=== PATIENT | female | born 1980 | race American Indian/Alaskan Native ===

== ENCOUNTER 2016-09-03 08:18 | Emergency (ER) | payer SELFPAY ==
[2016-09-03 08:28] VITALS: BP 131/83
[2016-09-03] MEDS ORDERED: MOTRIN PO ONE (08:33)
--- NOTE | 2016-09-03 08:37 | Emergency Department Report ---
HPI - General Chief Complaint: Sore Throat Time Seen by Provider: 09/03/16 08:36 ED Past Medical Hx - Past Medical History Previous Medical History?: Yes Hx Arthritis: Yes Hx Psychiatric Treatment: Yes (BIPOLAR) - Surgical History Past Surgical History?: Yes Hx Cholecystectomy: Yes Additional Surgical History: acl repair - Social History Smoking Status: Never Smoker Substance Use Type: Alcohol - Medications Home Medications: Home Medications Medication Instructions Recorded Confirmed Last Taken Type Fluconazole [Diflucan TAB] 150 mg PO ONCE #1 tablet 04/09/16 Unknown Rx Nitrofurantoin [place]/M-Cryst 100 mg PO Q12HR #6 capsule 04/09/16 Unknown Rx [Macrobid CAP] ED Review of Systems ROS: Stated complaint: SORE THROAT Other details as noted in HPI Physical Exam - Physical Exam Vital Signs: Vital Signs 09/03/16 08:25 Temperature 98.4 F Pulse Rate 87 Respiratory 20 Rate Blood Pressure 131/83 O2 Sat by Pulse 100 Oximetry ED Course Vital Signs 09/03/16 08:25 Temperature 98.4 F Pulse Rate 87 Respiratory 20 Rate Blood Pressure 131/83 O2 Sat by Pulse 100 Oximetry Critical care attestation.: If time is entered above; I have spent that time in minutes in the direct care of this critically ill patient, excluding procedure time. ED Disposition Disposition: DISCHARGED TO HOME OR SELFCARE Is pt being admited?: No Does the pt Need Aspirin: No Condition: Stable Instructions: Allergic Rhinitis (ED), Viral Syndrome (ED) Forms: Work/School Release Form(ED)
--- NOTE | 2016-09-03 09:18 | Emergency Department Report ---
ED ENT HPI - General Chief complaint: Sore Throat Stated complaint: SORE THROAT Time Seen by Provider: 09/03/16 08:36 Source: patient Mode of arrival: Ambulatory Limitations: No Limitations - History of Present Illness MD complaint: sore throat -: days(s) (2) Location: throat Severity: mild Severity scale (0 -10): 7 Quality: other Consistency: constant Improves with: NSAID Worsens with: swallowing Associated Symptoms: pain with swallowing, sore throat, rhinorrhea. denies: fever, cough, tinnitus, discharge from ear - Related Data Previous Rx's Medication Instructions Recorded Last Taken Type Fluconazole [Diflucan TAB] 150 mg PO ONCE #1 tablet 04/09/16 Unknown Rx Nitrofurantoin [place]/M-Cryst 100 mg PO Q12HR #6 capsule 04/09/16 Unknown Rx [Macrobid CAP] Allergies Allergy/AdvReac Type Severity Reaction Status Date / Time No Known Allergies Allergy Verified 04/09/16 18:24 ED Dental HPI - General Chief complaint: Sore Throat Stated complaint: SORE THROAT Time Seen by Provider: 09/03/16 08:36 Source: patient Mode of arrival: Ambulatory Limitations: No Limitations - History of Present Illness Initial comments: 36 year old female presents to ED with sore throat, rhinorrhea and congestion x2 -3 days. patient states she has history of allergies and is currently taking zyrtec. patient denies fevers, cough, ear pain. patient is stable, neurologically intact and in no acute distress. complaint: sore throat -: days(s) (2) Severity: mild Quality: other Consistency: constant Improves with: NSAID Worsens with: swallowing - Related Data Previous Rx's Medication Instructions Recorded Last Taken Type Fluconazole [Diflucan TAB] 150 mg PO ONCE #1 tablet 04/09/16 Unknown Rx Nitrofurantoin [place]/M-Cryst 100 mg PO Q12HR #6 capsule 04/09/16 Unknown Rx [Macrobid CAP] Allergies Allergy/AdvReac Type Severity Reaction Status Date / Time No Known Allergies Allergy Verified 04/09/16 18:24 ED Review of Systems ROS: Stated complaint: SORE THROAT Other details as noted in HPI Constitutional: denies: chills, fever Eyes: denies: eye pain, eye discharge, vision change ENT: throat pain, congestion. denies: ear pain, dental pain, epistaxis Respiratory: denies: cough, shortness of breath, wheezing Cardiovascular: denies: chest pain, palpitations Endocrine: no symptoms reported Gastrointestinal: denies: abdominal pain, nausea, diarrhea Genitourinary: denies: urgency, dysuria, discharge Musculoskeletal: denies: back pain, joint swelling, arthralgia Skin: denies: rash, lesions Neurological: denies: headache, weakness, paresthesias Psychiatric: denies: anxiety, depression Hematological/Lymphatic: denies: easy bleeding, easy bruising ED Past Medical Hx - Past Medical History Previous Medical History?: Yes Hx Arthritis: Yes Hx Psychiatric Treatment: Yes (BIPOLAR) - Surgical History Past Surgical History?: Yes Hx Cholecystectomy: Yes Additional Surgical History: acl repair - Social History Smoking Status: Never Smoker Substance Use Type: Alcohol - Medications Home Medications: Home Medications Medication Instructions Recorded Confirmed Last Taken Type Fluconazole [Diflucan TAB] 150 mg PO ONCE #1 tablet 04/09/16 Unknown Rx Nitrofurantoin [place]/M-Cryst 100 mg PO Q12HR #6 capsule 04/09/16 Unknown Rx [Macrobid CAP] ED Physical Exam - General Limitations: No Limitations General appearance: alert, in no apparent distress - Head Head exam: Present: atraumatic, normocephalic - Eye Eye exam: Present: normal appearance - ENT ENT exam: Present: normal exam, mucous membranes moist, TM's normal bilaterally - Expanded ENT Exam Expanded Mouth exam: Present: normal external inspection Teeth exam: Present: normal inspection Throat exam: Positive: tonsillar exudate, other (no lymphadnopathy, no erythema) . Negative: tonsillar erythema, R peritonsillar mass, L peritonsillar mass - Neck Neck exam: Present: normal inspection - Respiratory Respiratory exam: Present: normal lung sounds bilaterally. Absent: respiratory distress - Cardiovascular Cardiovascular Exam: Present: regular rate, normal rhythm. Absent: systolic murmur, diastolic murmur, rubs, gallop - GI/Abdominal GI/Abdominal exam: Present: soft, normal bowel sounds - Extremities Exam Extremities exam: Present: normal inspection - Back Exam Back exam: Present: normal inspection - Neurological Exam Neurological exam: Present: alert, oriented X3 - Psychiatric Psychiatric exam: Present: normal affect, normal mood - Skin Skin exam: Present: warm, dry, intact, normal color. Absent: rash ED Course Vital Signs 09/03/16 09/03/16 08:25 08:40 Temperature 98.4 F Pulse Rate 87 Respiratory 20 18 Rate Blood Pressure 131/83 O2 Sat by Pulse 100 Oximetry ED Medical Decision Making - Lab Data Strep negative-culture pending - Medical Decision Making 36 year old female presents to ED with sore throat, runny nose, congestion x2 days. patient has history of allergies and currently on zyrtec. patient is stable, neurologically intact and in no acute distress. patient has negative strep results in ED and will await culture. Critical care attestation.: If time is entered above; I have spent that time in minutes in the direct care of this critically ill patient, excluding procedure time. ED Disposition Clinical Impression: Rhinitis, allergic Qualifiers: Allergic rhinitis seasonality: seasonal Allergic rhinitis trigger: pollen Qualified Code(s): J30.1 - Allergic rhinitis due to pollen Disposition: DISCHARGED TO HOME OR SELFCARE Is pt being admited?: No Does the pt Need Aspirin: No Condition: Stable Instructions: Allergic Rhinitis (ED), Viral Syndrome (ED) Referrals: PRIMARY CARE, [Primary Care Provider] - 3-5 Days Forms: Work/School Release Form(ED)
== END 2016-09-03 09:22 | disposition home or self-care (01) ==
LOC: ED 08:18
DX: J30.1 Allergic rhinitis due to pollen (principal); M19.90 Unspecified osteoarthritis, unspecified site; F31.9 Bipolar disorder, unspecified
CPT/HCPCS: 87116; 87430; 99282

== ENCOUNTER 2017-01-09 06:50 | Emergency (ER) | payer MEDICAID ==
[2017-01-09 07:26] VITALS: BP 116/82
--- NOTE | 2017-01-09 08:08 | Emergency Department Report ---
ED ENT HPI - General Chief complaint: Sore Throat Stated complaint: SORE THROAT Time Seen by Provider: 01/09/17 07:35 Source: patient Mode of arrival: Ambulatory Limitations: No Limitations - History of Present Illness Initial comments: This is a 36-year-old female that presents to the ED c/o sore throat x1 day. Patient stated she gets a frequent strep throat with the last episode being of this year. Patient stated she did not follow up with ENT due to not wanting a tonsillitis. Associated symptoms includes painful while swallowing the described as swallowing razor blades. She denies any throat swelling, pus, drainage, fever, facial swelling, difficulty breathing, chest pain, shortness of breath numbness or tingling. He denies any fever. Past medical history of arthritis and bipolar. MD complaint: sore throat -: Gradual, days(s) (1) Severity: moderate Severity scale (0 -10): 10 Quality: other (sensation as swallowed razor blades) Consistency: constant Improves with: none Worsens with: swallowing Associated Symptoms: sore throat. denies: fever, cough, gum swelling, toothache , pain with swallowing, tinnitus, hearing loss, discharge from ear, rhinorrhea - Related Data Previous Rx's Medication Instructions Recorded Last Taken Type Fluconazole [Diflucan TAB] 150 mg PO ONCE #1 tablet 04/09/16 Unknown Rx Nitrofurantoin [place]/M-Cryst 100 mg PO Q12HR #6 capsule 04/09/16 Unknown Rx [Macrobid CAP] Amoxicillin/K Clav Tab [Augmentin 1 tab PO Q12HR #20 tab 01/09/17 Unknown Rx 875 mg] Allergies Allergy/AdvReac Type Severity Reaction Status Date / Time No Known Allergies Allergy Verified 04/09/16 18:24 ED Dental HPI - General Chief complaint: Sore Throat Stated complaint: SORE THROAT Time Seen by Provider: 01/09/17 07:35 Source: patient Mode of arrival: Ambulatory Limitations: No Limitations - Related Data Previous Rx's Medication Instructions Recorded Last Taken Type Fluconazole [Diflucan TAB] 150 mg PO ONCE #1 tablet 04/09/16 Unknown Rx Nitrofurantoin [place]/M-Cryst 100 mg PO Q12HR #6 capsule 04/09/16 Unknown Rx [Macrobid CAP] Amoxicillin/K Clav Tab [Augmentin 1 tab PO Q12HR #20 tab 01/09/17 Unknown Rx 875 mg] Allergies Allergy/AdvReac Type Severity Reaction Status Date / Time No Known Allergies Allergy Verified 04/09/16 18:24 ED Review of Systems ROS: Stated complaint: SORE THROAT Other details as noted in HPI Constitutional: denies: chills, fever Eyes: denies: eye pain, eye discharge, vision change ENT: denies: ear pain, throat pain Respiratory: denies: cough, shortness of breath, wheezing Cardiovascular: denies: chest pain, palpitations Endocrine: no symptoms reported Gastrointestinal: denies: abdominal pain, nausea, diarrhea Genitourinary: denies: urgency, dysuria, discharge Musculoskeletal: denies: back pain, joint swelling, arthralgia Skin: denies: rash, lesions Neurological: denies: headache, weakness, paresthesias Psychiatric: denies: anxiety, depression Hematological/Lymphatic: denies: easy bleeding, easy bruising ED Past Medical Hx - Past Medical History Previous Medical History?: Yes Hx Arthritis: Yes Hx Psychiatric Treatment: Yes (BIPOLAR) - Surgical History Past Surgical History?: Yes Hx Cholecystectomy: Yes Additional Surgical History: acl repair - Social History Smoking Status: Never Smoker Substance Use Type: None - Medications Home Medications: Home Medications Medication Instructions Recorded Confirmed Last Taken Type Fluconazole [Diflucan TAB] 150 mg PO ONCE #1 tablet 04/09/16 Unknown Rx Nitrofurantoin [place]/M-Cryst 100 mg PO Q12HR #6 capsule 04/09/16 Unknown Rx [Macrobid CAP] Amoxicillin/K Clav Tab [Augmentin 1 tab PO Q12HR #20 tab 01/09/17 Unknown Rx 875 mg] ED Physical Exam - General Limitations: No Limitations General appearance: alert, in no apparent distress - Head Head exam: Present: atraumatic, normocephalic, normal inspection - Eye Eye exam: Present: normal appearance, PERRL, EOMI. Absent: scleral icterus, conjunctival injection, nystagmus, periorbital swelling, periorbital tenderness Pupils: Present: normal accommodation - ENT ENT exam: Present: normal exam, normal orophraynx, mucous membranes moist, TM's normal bilaterally, normal external ear exam - Expanded ENT Exam Expanded Ear exam: Present: normal external inspection Mouth exam: Present: normal external inspection, tongue normal. Absent: drooling, trismus, muffled voice, tongue elevation, laceration Teeth exam: Present: normal inspection Throat exam: Positive: tonsillar erythema, tonsillomegaly (2+), tonsillar exudate, other (uvula midline. There is no pus or drainage. No swelling.). Negative: R peritonsillar mass, L peritonsillar mass - Neck Neck exam: Present: normal inspection, full ROM. Absent: tenderness, meningismus, lymphadenopathy, thyromegaly - Respiratory Respiratory exam: Present: normal lung sounds bilaterally. Absent: respiratory distress, wheezes, rales, rhonchi, stridor, chest wall tenderness, accessory muscle use, decreased breath sounds, prolonged expiratory - Cardiovascular Cardiovascular Exam: Present: regular rate, normal rhythm. Absent: systolic murmur, diastolic murmur, rubs, gallop - GI/Abdominal GI/Abdominal exam: Present: soft, normal bowel sounds. Absent: distended, tenderness, guarding, rebound, rigid, diminished bowel sounds - Extremities Exam Extremities exam: Present: normal inspection - Back Exam Back exam: Present: normal inspection - Neurological Exam Neurological exam: Present: alert, oriented X3 - Psychiatric Psychiatric exam: Present: normal affect, normal mood - Skin Skin exam: Present: warm, dry, intact, normal color. Absent: rash ED Course Vital Signs 01/09/17 07:22 Temperature 98.8 F Pulse Rate 91 H Respiratory 18 Rate Blood Pressure 116/82 O2 Sat by Pulse 98 Oximetry - Reevaluation(s) Reevaluation #1: 01/09/17 08:07 Patient is speaking in full sentences with no signs of distress. Critical care attestation.: If time is entered above; I have spent that time in minutes in the direct care of this critically ill patient, excluding procedure time. ED Disposition Clinical Impression: Tonsillitis with exudate Disposition: DC-01 TO HOME OR SELFCARE Is pt being admited?: No Does the pt Need Aspirin: No Condition: Stable Instructions: Tonsillitis (ED), Amoxicillin/Clavulanate Potassium (By mouth) Additional Instructions: Follow-up with your primary care doctor in 3-5 days or if symptoms worsen such as difficult to breathing, pus, drainage, facial swelling, stiffness, headache, chest pain, shortness of breath, or worsening symptoms return to emergency room as soon as possible. Take full course of antibiotics as prescribed. Prescriptions: Amoxicillin/K Clav Tab [Augmentin 875 mg] 1 tab PO Q12HR #20 tab Referrals: PRIMARY CAREMD [Primary Care Provider] - 3-5 Days SHELLI DESOUZA MD [Staff Physician] - 3-5 Days [facility] [Outside] - 3-5 Days [facility] [Outside] - 3-5 Days Forms: Work/School Release Form(ED)
== END 2017-01-09 08:59 | disposition home or self-care (01) ==
LOC: ED 06:50
DX: J02.9 Acute pharyngitis, unspecified (principal); J03.90 Acute tonsillitis, unspecified; M19.90 Unspecified osteoarthritis, unspecified site; F31.9 Bipolar disorder, unspecified
CPT/HCPCS: 99282